=== PATIENT | male | born 1990 | race Caucasian/White ===

== ENCOUNTER 2018-02-27 09:01 | Day surgery (SDC) | payer MEDICARE ==
[~2018-02-27] VITALS: Ht 185.4 cm; Wt 100.0 kg
[~2018-02-27 09:01] MED LIST: ALBU90OI INH; AMOX500 PO; Cleocin HCl300 MG PO; IBUP800 PO; Norco 5-325 Ta1 EACH PO; OXYACE5T PO; Prednisone20 MG PO; Zithromax250 MG PO
[2018-02-27] MEDS ORDERED: ASPI81CH (09:23)
== END 2018-02-27 12:20 | disposition home or self-care (01) ==
LOC: ORSCSDS 09:01
PROVIDERS: Surgery
PROC: 0DBE8ZX Excision of Large Intestine, Via Natural or Artificial Opening Endoscopic, Diagnostic (ICD-10-PCS; principal; 2018-02-27 10:15)
DX: R10.31 Right lower quadrant pain (principal); K52.9 Noninfective gastroenteritis and colitis, unspecified; R94.8 Abnormal results of function studies of other organs and systems; F17.210 Nicotine dependence, cigarettes, uncomplicated

== ENCOUNTER 2019-01-21 13:55 | Emergency (ER) | payer MEDICARE ==
[~2019-01-21] VITALS: Ht 185.4 cm; Wt 106.6 kg
[~2019-01-21 13:55] MED LIST changes: +ASPI81CH
[2019-01-21] MEDS ORDERED: Ultram50 MG PO (16:42)
[2019-01-21] MEDS ORDERED: CEPH500 PO (16:42)
== END 2019-01-21 17:02 | disposition home or self-care (01) ==
LOC: ER 13:55
DX: K42.9 Umbilical hernia without obstruction or gangrene (principal); F17.210 Nicotine dependence, cigarettes, uncomplicated
CPT/HCPCS: 76857; 99284-25

== ENCOUNTER 2019-01-23 15:56 | Emergency (ER) | payer MEDICARE ==
[~2019-01-23] VITALS: Ht 185.4 cm; Wt 108.9 kg
[~2019-01-23 15:56] MED LIST changes: +CEPH500 PO; +Ultram50 MG PO
[2019-01-23 17:39] LABS: BASOPHILS ABSOLUTE AUTO 0.02 K/mm3 (0.00-0.23); BASOPHILS PERCENT AUTO 0 % (0-2); EOSINOPHILS ABSOLUTE AUTO 0.11 K/mm3 (0.00-0.68); EOSINOPHILS PERCENT AUTO 1 % (0-6); Hematocrit 46.2 % (37.0-53.0); Hemoglobin 16.2 g/dL (13.5-17.5); IMMATURE GRAN ABSOLUTE AUTO 0.03 K/mm3 (0.00-0.10); IMMATURE GRAN PERCENT AUTO 0 % (0-1); LYMPHOCYTES ABSOLUTE AUTO 1.64 K/mm3 (0.84-5.20); LYMPHOCYTES PERCENT AUTO 16 % (21-46); MONOCYTES ABSOLUTE AUTO 0.69 K/mm3 (0.16-1.47); MONOCYTES PERCENT AUTO 7 % (4-13); Mean Corpuscular HGB 31.3 pg (26.0-34.0); Mean Corpuscular HGB Conc 35.1 g/dL (31.5-36.5); Mean Corpuscular Volume 89 fL (80-100); Mean Platelet Volume 9.3 fL (9.1-12.4); NEUTROPHILS ABSOLUTE AUTO 7.81 K/mm3 (1.96-9.15); NEUTROPHILS PERCENT AUTO 76 % (41-73); Platelet Count 273 K/mm3 (150-400); RDW Coefficient Variation 11.1 % (11.7-14.2); RDW Standard Deviation 36.3 fL (35.1-46.3); Red Blood Cell Count 5.18 M/mm3 (4.30-5.90)
[2019-01-23 18:02] LABS: Alanine Aminotransfer (ALT/SGP 53 U/L (12-78); Albumin, Blood 4.3 g/dL (3.4-5.0); Albumin/Globulin Ratio 1.3 (0.8-1.8); Alk Phos 88 U/L (50-136); Anion Gap 7 mmol/L (6-16); Aspartate Aminotrans (AST/SGOT 17 U/L (12-37); Bilirubin, Total 0.6 mg/dL (0.1-1.0); Blood Urea Nitrogen 11 mg/dL (8-24); Bun/Creatinine Ratio 14.2 (12.0-20.0); CO2, Blood 27 mmol/L (21-32); Calcium, Blood 9.6 mg/dL (8.5-10.1); Chloride, Blood 102 mmol/L (98-108); Creatinine, Blood 0.77 mg/dL (0.60-1.20); Globulin, Blood 3.4 g/dL (2.2-4.0); Glomerular Filtration Rate >60 (60-); Glucose, Blood 146 mg/dL (70-99); Potassium, Blood 3.9 mmol/L (3.5-5.5); Sodium, Blood 136 mmol/L (136-145); Total Protein, Blood 7.7 g/dL (6.4-8.2)
[2019-01-23] MEDS ORDERED: Bactrim Ds Tab1 EACH PO (19:47)
== END 2019-01-23 19:59 | disposition home or self-care (01) ==
LOC: ER 15:56
PROVIDERS: Physician Assistant
DX: K42.9 Umbilical hernia without obstruction or gangrene (principal); L03.311 Cellulitis of abdominal wall; F17.210 Nicotine dependence, cigarettes, uncomplicated
CPT/HCPCS: 36415; 74177; 80053; 85025; 96361; 96374-59; 99284-25; A9270; J2270; J7030; Q9967